=== PATIENT | female | born 2000 | race African-American/Black ===

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

== ENCOUNTER 2023-12-24 01:27 | Observation (INO) | payer MEDICAID ==
[~2023-12-24] VITALS: Ht 162.6 cm; Wt 119.7 kg
[2023-12-24] MEDS ORDERED: PREN-96 PO (04:23)
== END 2023-12-24 04:37 | disposition home or self-care (01) ==
LOC: LDRP 01:27
PROVIDERS: ADMIT Obstetrics & Gynecology; ATTEND Obstetrics & Gynecology
DX: O62.9 Abnormality of forces of labor, unspecified (principal); Z3A.38 38 weeks gestation of pregnancy
CPT/HCPCS: 59025; 81002; 94760; G0378

== ENCOUNTER 2023-12-24 19:46 | Observation (INO) | payer MEDICAID ==
[~2023-12-24 19:46] MED LIST: PREN-96 PO
== END 2023-12-24 21:10 | disposition home or self-care (01) ==
LOC: LDRP 19:46
PROVIDERS: ADMIT Obstetrics & Gynecology; ATTEND Obstetrics & Gynecology
DX: O75.82 Onset (spontaneous) of labor after 37 completed weeks of gestation but before 39 completed weeks gestation, with delivery by (planned) cesarean section (principal); O26.893 Other specified pregnancy related conditions, third trimester; R10.9 Unspecified abdominal pain; Z3A.38 38 weeks gestation of pregnancy; Z87.891 Personal history of nicotine dependence
CPT/HCPCS: 59025; 81002; 94760; G0378